=== PATIENT | female | born 1945 | race Caucasian/White ===

== ENCOUNTER 2019-02-28 02:54 | Emergency (ER) | payer OTHER ==
[~2019-02-28] VITALS: Ht 167.6 cm; Wt 93.4 kg
[~2019-02-28 02:54] MED LIST: AMLO-147 PO; ASPI-535 PO; CEPH-443 PO; ERGO500013 PO; HYDR25TA6 PO; IBUP-1542 PO; LISI40TA3 PO
[2019-02-28 02:56] VITALS: Ht 167.6 cm; Wt 93.4 kg
[2019-02-28] MEDS ORDERED: ONDANSETRON 4 MG INJ IV STA (03:19)
[2019-02-28] MEDS ORDERED: morphine 2 MG INJ IV STA (03:19)
[2019-02-28] MEDS ORDERED: CEFTRIAXONE 1 GM/50 ML (PMX) 50 ML IVPB ONE (05:00)
[2019-02-28 06:10] VITALS: BP 157/72; PULSE 66; RESP 18
== END 2019-02-28 06:20 | disposition home or self-care (01) ==
LOC: E/R 02:54
DX: N39.0 Urinary tract infection, site not specified (principal); K80.20 Calculus of gallbladder without cholecystitis without obstruction; R31.9 Hematuria, unspecified; I10 Essential (primary) hypertension; Z79.82 Long term (current) use of aspirin
CPT/HCPCS: 36415; 80053; 81003; 83690; 84484; 85025; 96374; 96375; J0696; J2270; J2405; Z7502; 93005